=== PATIENT | male | born 1945 | race Asian ===

== ENCOUNTER 2022-05-07 14:33 | Emergency (ER) | payer OTHER ==
[~2022-05-07] VITALS: Ht 162.6 cm; Wt 65.8 kg
[2022-05-07] MEDS ORDERED: LIDOCAINE/PRILOCAINE 2.5-2.5% KIT TOP ONE (15:15)
[2022-05-07] MEDS ORDERED: LIDOCAINE-PRILO30 GM TOP (15:38)
== END 2022-05-07 15:52 | disposition home or self-care (01) ==
LOC: ER 14:50
DX: Z46.6 Encounter for fitting and adjustment of urinary device (principal); N48.89 Other specified disorders of penis; I10 Essential (primary) hypertension; Z85.89 Personal history of malignant neoplasm of other organs and systems
CPT/HCPCS: 99283